=== PATIENT | male | born 1990 | race Hispanic/Latino ===

== ENCOUNTER 2019-06-14 06:00 | Emergency (ER) | payer OTHER ==
[2019-06-14 18:16] LABS: Bacteria/HPF 3+ HPF (None Seen); Bilirubin Negative (Negative); Blood, Urine 2+ (Negative); Clarity Turbid (Clear); Glucose, Urine (Dipstick) Normal (Negative); Leukocyte 500 Leu/uL (Negative); Nitrite Negative (Negative); Protein, Urine (Dipstick) 10 mg/dL (Neg-Trace); RBC/HPF 21-50 HPF (0-3); Squamous Epithelial 0-3 HPF (0-3); Urobilinogen Normal mg/dL (Less than 2); WBC/HPF Greater than 50 HPF (0-3)
--- NOTE | 2019-06-14 18:41 | ULT ---
Scrotal ultrasound: 06/14/2019 COMPARISON: None HISTORY: Scrotal ultrasound: 06/14/2019 COMPARISON: None HISTORY: Right-sided pain TECHNIQUE: Multiplanar grayscale sonographic imaging of the scrotal contents with Doppler interrogati on of the testicles including color flow and spectral analysis FINDINGS: The right testicle measures 3.4 x 2.3 x 4.3 cm and the left testicle measures 2.3 x 2.8 x 4 .4 cm. There is normal blood flow within bilateral testicles. No evidence for testicular mass on either side. The right epididymal tail is enlarged and heterogeneous suggesting complexity. Right epididymal head measures 6 x 13 x 14 mm and left epididymal head measures 12 x 9 x 19 mm. There is a small hydrocele on the right. No left hydrocele. IMPRESSION: Enlarged and edematous right epididymal tail suggesting epididymitis.
[2019-06-14] MEDS ORDERED: Lidocaine 1% PF 5 ML VIAL ONE (19:11)
[2019-06-14] MEDS ORDERED: cefTRIAXone\\ROCEPHIN 250 MG VIAL ONE (19:11)
== END 2019-06-14 19:34 | disposition still patient (30) ==
LOC: ERS 15:24
DX: N45.1 Epididymitis (principal); F41.9 Anxiety disorder, unspecified; F32.9 Major depressive disorder, single episode, unspecified; Z79.899 Other long term (current) drug therapy
CPT/HCPCS: 76870; 81003; 81015; 93976; 96372; J0696; J2001